=== PATIENT | female | born 1960 | race Caucasian/White ===

== ENCOUNTER 2016-12-17 23:03 | Emergency (ER) | payer OTHER ==
[2016-12-18 02:34] VITALS: BP 158/83
== END 2016-12-18 02:34 | disposition home or self-care (01) ==
LOC: ED 23:03
DX: K02.9 Dental caries, unspecified (principal); J32.1 Chronic frontal sinusitis; J32.0 Chronic maxillary sinusitis

== ENCOUNTER 2017-09-10 09:43 | Emergency (ER) | payer OTHER ==
[~2017-09-10] VITALS: Ht 172.7 cm; Wt 106.6 kg
[2017-09-10 10:06] VITALS: Ht 172.7 cm; Wt 106.6 kg
[2017-09-10 14:32] VITALS: BP 148/70
== END 2017-09-10 14:32 | disposition home or self-care (01) ==
LOC: ED 09:43
DX: S39.012A Strain of muscle, fascia and tendon of lower back, initial encounter (principal); S70.01XA Contusion of right hip, initial encounter; Z88.0 Allergy status to penicillin; Z88.1 Allergy status to other antibiotic agents; Z91.040 Latex allergy status; W18.39XA Other fall on same level, initial encounter; Y93.89 Activity, other specified; Y99.8 Other external cause status; Y92.89 Other specified places as the place of occurrence of the external cause
CPT/HCPCS: J2270; Q0162